=== PATIENT | female | born 1975 | race Caucasian/White ===

== ENCOUNTER 2017-07-18 08:54 | Emergency (ER) | payer OTHER ==
[2017-07-18 10:04] LABS: BASOPHIL (%) 0.3 % (0-1); BASOPHIL COUNT 0.1 K/uL (0-0.1); EOSINOPHIL (%) 0.5 % (0-5); EOSINOPHIL COUNT 0.1 K/uL (0-0.3); HEMATOCRIT 34.4 % (36.0-46.0); HEMOGLOBIN 11.4 G/DL (11.9-15.5); IMMATURE GRANULOCYTE (%) 0.9 % (0.0-0.7); LYMPHOCYTE (%) 13.6 % (15-42); LYMPHOCYTE COUNT 3.4 K/uL (1.0-2.8); MCHC 33.1 G/DL (30.0-36.0); MCV 99.7 FL (83-99); MONOCYTE (%) 5.6 % (3-12); MONOCYTE COUNT 1.4 K/uL (0-0.8); NEUTROPHIL (%) 79.1 % (45-76); NEUTROPHIL COUNT 19.9 K/uL (1.8-6.4); PLATELET COUNT 378 K/uL (156-360); RBC DIS.WIDTH-CV 13.2 % (11.8-14.6); RBC DIS.WIDTH-SD 47.8 % (39-53); RED BLOOD COUNT 3.45 M/uL (3.80-5.20); WHITE BLOOD COUNT 25.2 K/uL (4.1-10.2)
[2017-07-18 10:09] LABS: ALBUMIN 3.5 g/dL (3.2-4.8); PTT 22.9 SEC (25-37)
[2017-07-18 10:10] LABS: CHLORIDE 102 mEq/L (99-109); POTASSIUM 4.6 mEq/L (3.7-5.4); SODIUM 136 mEq/L (136-147)
[2017-07-18 10:14] LABS: GLUCOSE 287 mg/dL (70-99); TOTAL BILIRUBIN 0.7 mg/dL (0.0-1.0); TOTAL PROTEIN 6.1 g/dL (6.4-8.3)
[2017-07-18 10:15] LABS: ALKALINE PHOSPHATASE 93 IU/L (3-129)
[2017-07-18 10:16] LABS: CREATININE 0.9 mg/dL (0.6-1.3); GFR ESTIMATE (CALCULATED) > 59 mL/min/
[2017-07-18 10:17] LABS: AMYLASE 31 IU/L (1-118); AST (GOT) 100 IU/L (2-34); DIRECT BILIRUBIN 0.3 mg/dL (0.0-0.3); UREA NITROGEN (BUN) 15 mg/dL (9-23)
[2017-07-18 10:18] LABS: ALT (GPT) 69 IU/L (3-49)
[2017-07-18 10:19] LABS: TROP-I INTERPRETATION NEGATIVE; TROPONIN-I 0.04 ng/mL (0.0-0.30)
[2017-07-18 10:22] LABS: SERUM ETHYL ALCOHOL < 10 mg/dL
[2017-07-18 10:24] LABS: QUANTITATIVE HCG < 4.0 MIU/ML
[2017-07-18 10:25] LABS: LIPASE 26 U/L (1.0-51.0)
[2017-07-18 12:04] LABS: HEMATOCRIT 30.1 % (36.0-46.0); MCH 33.4 PG (29.0-34.0); MCHC 33.2 G/DL (30.0-36.0); MCV 100.7 FL (83-99); PLATELET COUNT 320 K/uL (156-360); RBC DIS.WIDTH-CV 13.2 % (11.8-14.6); RBC DIS.WIDTH-SD 48.2 % (39-53); RED BLOOD COUNT 2.99 M/uL (3.80-5.20); WHITE BLOOD COUNT 28.7 K/uL (4.1-10.2)
== END 2017-07-18 13:55 | disposition short-term general hospital (02) ==
LOC: EDBD 08:54 → TRA 08:54 → CANRESERV 11:15 → ENRESERV 11:15 → CANRESERV 12:20 → ENRESERV 12:20 → CANRESERV 12:54 → TRA 13:55
PROVIDERS: Emergency Medicine
DX: S52.501B Unspecified fracture of the lower end of right radius, initial encounter for open fracture type I or II (principal); S52.601A Unspecified fracture of lower end of right ulna, initial encounter for closed fracture; S52.251A Displaced comminuted fracture of shaft of ulna, right arm, initial encounter for closed fracture; S82.831A Other fracture of upper and lower end of right fibula, initial encounter for closed fracture; S36.892A Contusion of other intra-abdominal organs, initial encounter; S20.219A Contusion of unspecified front wall of thorax, initial encounter; S01.02XA Laceration with foreign body of scalp, initial encounter; S21.229A Laceration with foreign body of unspecified back wall of thorax without penetration into thoracic cavity, initial encounter; S81.811A Laceration without foreign body, right lower leg, initial encounter; S61.411A Laceration without foreign body of right hand, initial encounter; S40.812A Abrasion of left upper arm, initial encounter; S50.812A Abrasion of left forearm, initial encounter; V53.6XXA Passenger in pick-up truck or van injured in collision with car, pick-up truck or van in traffic accident, initial encounter; Y92.410 Unspecified street and highway as the place of occurrence of the external cause; Z23 Encounter for immunization; I95.9 Hypotension, unspecified; R79.89 Other specified abnormal findings of blood chemistry; M50.223 Other cervical disc displacement at C6-C7 level; M48.02 Spinal stenosis, cervical region; I10 Essential (primary) hypertension; E11.9 Type 2 diabetes mellitus without complications; E66.01 Morbid (severe) obesity due to excess calories; Z79.82 Long term (current) use of aspirin
CPT/HCPCS: 70450; 71045; 71260; 72125; 72129; 72132; 73090; 73120; 73590; 74177; 80048 91; 80053; 81003; 82150; 82248; 83690; 84484; 84702; 85025; 85025 91; 85027; 85610; 85730; 86850; 86900; 86901; 86920; 90832; 93005; G0480; J0690; J1630; J2270; J2405; J3010; P9016